=== PATIENT | male | born 2000 | race Caucasian/White ===

== ENCOUNTER 2021-01-09 17:09 | Emergency (ER) | payer MEDICAID ==
[2021-01-09] MEDS ORDERED: Sodium Chloride 0.9% 1000 ML 1,000 ML IV STA (17:29)
--- NOTE | 2021-01-09 17:35 | ERPHSYRPT ---
- History of Present Illness Time Seen by Provider: 01/09/21 17:20 Source: patient Exam Limitations: no limitations Patient Subjective Stated Complaint: PT states "I have had lower abdominal pain for two days and today it got really bad. It was swollen in the area this mo rning." Triage Nursing Assessment: PT presented alert and oriented X 3, skin pwd Pt ambulates with an upright steady gait, able to speak in clear full sentences. PT stated that when he moves it really hurts. Physician History: Patient is a 20-year-old male presents to our ED with complaints of right lower quadrant pain. Patient has been experiencing intermittent right lower quadrant pain for 2 days. Patient states he feels the right lower quadrant is somewhat swollen. Patient states he has had his pain in the past. Patient had a CAT scan. Patient believes he may have had appendicitis but states it was untreated. However patient is not sure. No associated nausea or vomiting. No diarrhea. No rash. No fever. No trauma. Patient denies testicular pain/tenderness. He voices no other complaints at this time. Timing/Duration: yesterday (2 Days) Severity: moderate Modifying Factors: Improves With: movement Associated Symptoms: denies symptoms, No diaphoresis, No cough, No chills, No fever, No headaches, No loss of appetite, No syncope Allergies/Adverse Reactions: No Known Drug Allergies Allergy (Verified 01/09/21 17:22) Home Medications: No Reportable Medications [No Reported Medications] 01/09/21 [History] Hx Tetanus, Diphtheria Vaccination/Date Given: No Hx Influenza Vaccination/Date Given: No Hx Pneumococcal Vaccination/Date Given: No Immunizations Up to Date: Yes Travel Risk - International Travel Have you traveled outside of the country in past 3 weeks: No - Coronavirus Screening Are you exhibiting any of the following symptoms?: No Close contact with a COVID-19 positive Pt in past 14-21 Days: No - Review of Systems Constitutional: No Symptoms, No Fever, No Chills Eyes: No Symptoms Ears, Nose, & Throat: No Symptoms Respiratory: No Symptoms, No Cough, No Dyspnea Cardiac: No Symptoms, No Chest Pain, No Edema, No Syncope Abdominal/Gastrointestinal: No Symptoms, Abdominal Pain, Other (Tenderness to palpation right lower quadrant.), No Nausea, No Vomiting, No Diarrhea Genitourinary Symptoms: No Symptoms, Other (No testicular tenderness or pain. Genitalia exam within normal limits.), No Dysuria Musculoskeletal: No Symptoms, No Back Pain, No Neck Pain Skin: No Symptoms, No Rash Neurological: No Symptoms, No Dizziness, No Focal Weakness, No Sensory Changes Psychological: No Symptoms Endocrine: No Symptoms Hematologic/Lymphatic: No Symptoms Immunological/Allergic: No Symptoms All Other Systems: Reviewed and Negative - Past Medical History Pertinent Past Medical History: No - Past Surgical History Past Surgical History: Yes Other Surgical History: tonsils - Social History Smoking Status: Current every day smoker How long have you smoked: years Exposure to second hand smoke: Yes Drug Use: none Patient Lives Alone: No - Nursing Vital Signs Nursing Vital Signs: Initial Vital Signs Temperature 99.1 F 01/09/21 17:16 Pulse Rate 85 01/09/21 17:16 Respiratory Rate 20 01/09/21 17:16 Blood Pressure 142/80 01/09/21 17:16 O2 Sat by Pulse Oximetry 99 01/09/21 17:16 Pain Scale Pain Intensity 6 - Physical Exam General Appearance: no apparent distress, alert Eye Exam: PERRL/EOMI, eyes nml inspection Ears, Nose, Throat Exam: normal ENT inspection, TMs normal, pharynx normal, moist mucous membranes Neck Exam: normal inspection, non-tender, supple, full range of motion Respiratory Exam: normal breath sounds, lungs clear, No respiratory distress Cardiovascular Exam: regular rate/rhythm, normal heart sounds, normal peripheral pulses Gastrointestinal/Abdomen Exam: soft, normal bowel sounds, No tenderness, No mass Back Exam: normal inspection, normal range of motion, No CVA tenderness, No vertebral tenderness Extremity Exam: normal inspection, normal range of motion, pelvis stable Neurologic Exam: alert, oriented x 3, cooperative, normal mood/affect, nml cerebellar function, nml station & gait, sensation nml, No motor deficits Skin Exam: normal color, warm, dry, No rash Lymphatic Exam: No adenopathy SpO2 Interpretation: normal SpO2: 99 O2 Delivery: Room Air - Course Nursing assessment & vital signs reviewed: Yes - CT Exams Abdomen/Pelvis CT Interpretation: Tele-radiologist Report (Normal appendix. Stomach mildly distended with food and fluid. Gallbladder contracted mild diffuse fecal stasis. Incidental bilateral L5 spondylolysis with 1 to 2 mm spondylolisthesis.) Ordered Tests: Active Orders 24 hr Category Date Time Status IV Insertion STAT Care 01/09/21 17:29 Active NPO (ED) STAT Care 01/09/21 17:29 Active ABDOMEN AND PELVIS W CONTRAST [CT] Stat Exams 01/09/21 17:29 Taken CBC W DIFF Stat Lab 01/09/21 17:53 Completed CMP Stat Lab 01/09/21 17:53 Completed LIPASE Stat Lab 01/09/21 17:53 Completed Manual Differential NC Stat Lab 01/09/21 17:53 Completed UA W/RFX UR CULTURE Stat Lab 01/09/21 18:00 Completed Medication Summary Discontinued Medications Generic Name Dose Route Start Last Admin Trade Name Cecile PRN Reason Stop Dose Admin Sodium Chloride 1,000 mls @ 999 mls/hr 01/09/21 17:29 01/09/21 17:41 Sodium Chloride 0.9% 1000 Ml IV 01/09/21 18:29 999 mls/hr .Q1H1M STA Administration Sodium Chloride Confirm 01/09/21 17:39 Sodium Chloride 0.9% 1000 Ml Administered 01/09/21 17:40 Dose 1,000 mls @ ud .ROUTE .[facility] Lab/Rad Data: Laboratory Result Diagrams 01/09/21 17:53 01/09/21 17:53 Laboratory Results 01/09/21 01/09/21 01/09/21 Range/Units 18:00 17:53 17:53 WBC 9.6 (4.0-10.5) K/mm3 RBC 5.61 H (4.1-5.6) M/mm3 Hgb 16.8 (12.5-18.0) gm/dl Hct 49.5 (42-50) % MCV 88.2 (78-100) fl MCH 29.9 (26-32) pg MCHC 33.9 (32-36) g/dl RDW 12.4 (11.5-14.0) % Plt Count 301 (150-450) K/mm3 MPV 10.9 (7.5-11.0) fl Sodium 137 (137-145) mmol/L Potassium 4.0 (3.5-5.1) mmol/L Chloride 99 (98-107) mmol/L Carbon Dioxide 29 (22-30) mmol/L Anion Gap 13.0 (5-15) MEQ/L BUN 13 (9-20) mg/dL Creatinine 0.86 (0.66-1.25) mg/dL Estimated GFR > 60.0 ML/MIN Glucose 92 (74-106) mg/dL Calcium 9.9 (8.4-10.2) mg/dL Total Bilirubin 0.30 (0.2-1.3) mg/dL AST 35 (17-59) U/L ALT 23 (0-50) U/L Alkaline Phosphatase 78 (38-126) U/L Serum Total Protein 7.8 (6.3-8.2) g/dL Albumin 4.7 (3.5-5.0) g/dL Lipase 84 (23-300) U/L Urine Color YELLOW (YELLOW) Urine Appearance SLIGHTLY CLOUDY (CLEAR) Urine pH 7.0 (5-6) Ur Specific [place] 1.025 (1.005-1.025) Urine Protein NEGATIVE (Negative) Urine Ketones NEGATIVE (NEGATIVE) Urine Blood NEGATIVE (0-5) Price/ul Urine Nitrite NEGATIVE (NEGATIVE) Urine Bilirubin NEGATIVE (NEGATIVE) Urine Urobilinogen NEGATIVE (0-1) mg/dL Ur Leukocyte Esterase NEGATIVE (NEGATIVE) Urine WBC (Auto) NONE (0-5) /HPF Urine RBC (Auto) NONE (0-2) /HPF U Epithel Cells (Auto) NONE (FEW) /HPF Urine Bacteria (Auto) NONE (NEGATIVE) /HPF Urine Culture Reflexed NO (NO) Urine Glucose NEGATIVE (NEGATIVE) mg/dL - Progress Progress: improved Progress Note: Patient reassessed. No active pain at this time. Laboratory work-up essentially within normal limits. CT abdomen pelvis negative for appendicitis. However fecal stasis was observed. This may be the cause of patient's pain. Patient will try [id number] MiraLAX to address the constipation. Bilateral L5 spondylolysis with 1 to 2 mm spondylolisthesis. Patient aware of this finding and will follow up. Patient given a referral to Dr. Sam. Patient states he is ready for discharge. He voices no other complaints concerns at this time. Will discharge home. 01/09/21 19:14 Counseled pt/family regarding: lab results, diagnosis, rad results - Departure Departure Disposition: Home Clinical Impression: Constipation, Spondylolysis, Spondylolisthesis at L5-S1 level Condition: Stable Critical Care Time: No Referrals: DOCTOR,NO FAMILY [Primary Care Provider] - RAMONA SAM [ACTIVE STAFF] - Additional Instructions: Discharge/Care Plan ANT MILLER was seen on 01/09/21 in the Emergency Room. The patient was counseled regarding Diagnosis,Lab results, Imaging studies, need for follow up and when to return to the Emergency Room. Prescriptions given: Discharge Note I have spoken with the patient and/or caregivers. I have explained the patient's condition, diagnosis and treatment plan based on the information available to me at this time. I have answered the patient's and/or caregiver's questions and addressed any concerns. The patient and/or caregivers have as good understanding of the patient's diagnosis, condition and treatment plan as can be expected at this point. The vital signs have been stable. The patient's condition is stable and appropriate for discharge from the emergency department. The patient will pursue further outpatient evaluation with the primary care physician or other designated or consulting physician as outlined in the discharge instructions. The patient and/or caregivers are agreeable to this plan of care and follow-up instructions have been explained in detail. The patient and/or caregivers have received these instruction. The patient/and or caregivers are aware that any significant change in condition or worsening of symptoms should prompt an immediate return to this or the closest emergency department or call 911.
[2021-01-09] MEDS ORDERED: Sodium Chloride 0.9% 1000 ML 1,000 ML ONE (17:39)
[2021-01-09 17:57] LABS: Hematocrit 49.5 % (42-50); Hemoglobin 16.8 gm/dl (12.5-18.0); Mean Cell Volume 88.2 fl (78-100); Mean Corpuscular Hemoglobin 29.9 pg (26-32); Mean Corpuscular Hgb Concent. 33.9 g/dl (32-36); Mean Platelet Volume 10.9 fl (7.5-11.0); Platelet Count 301 K/mm3 (150-450); Red Blood Count 5.61 M/mm3 (4.1-5.6); Red Cell Distribution Width 12.4 % (11.5-14.0); White Blood Count 9.6 K/mm3 (4.0-10.5)
[2021-01-09 18:13] LABS: ALBUMIN 4.7 g/dL (3.5-5.0); ALKALINE PHOSPHATASE 78 U/L (38-126); BLOOD UREA NITROGEN 13 mg/dL (9-20); CHLORIDE 99 mmol/L (98-107); Calcium 9.9 mg/dL (8.4-10.2); Carbon Dioxide 29 mmol/L (22-30); Creatinine 1 0.86 mg/dL (0.66-1.25); EST GLOMERULAR FILTRATION RATE > 60.0 ML/MIN; Glucose 92 mg/dL (74-106); LIPASE 84 U/L (23-300); SGOT/AST 35 U/L (17-59); SGPT/ALT 23 U/L (0-50); SODIUM 137 mmol/L (137-145); Total Protein 7.8 g/dL (6.3-8.2)
[2021-01-09 18:19] VITALS: BP 138/69; PULSE 71
[2021-01-09 18:31] LABS: Appearance SLIGHTLY CLOUDY (CLEAR); Bilirubin NEGATIVE (NEGATIVE); Blood NEGATIVE Ery/ul (0-5); Glucose NEGATIVE (NEGATIVE); Ketones NEGATIVE (NEGATIVE); Leukocyte Esterase NEGATIVE (NEGATIVE); Nitrite NEGATIVE (NEGATIVE); Protein,Urine Dip NEGATIVE (Negative); Specific Gravity 1.025 (1.005-1.025); Urobilinogen NEGATIVE mg/dL (0-1)
[2021-01-09 19:00] VITALS: O2SAT 99
[2021-01-09 20:36] LABS: ATYPICAL LYMPHS 1 %; BAND 2 % (0.0-2.0); Eosinophil 3 % (0.00-3.0); Lymphocytes 20 % (24-44); Monocyte 9 % (0.0-12.0); Neutrophils 65 % (36.-66.); Platelet Estimate NORMAL (NORMAL); Total Cells Counted 100
--- NOTE | 2021-01-10 08:47 | XRAY ---
Indication: Right lower quadrant pain. Multiple contiguous axial images obtained through the abdomen and pelvis using 80 cc Isovue 370 contrast. Comparison: None Lung bases demonstrates mild dependent atelectasis. No infiltrate or effusion. Heart is not enlarged. Stomach is distended with food/fluid. Noncontrasted stomach and bowel loops appear nonobstructed. Normal air-filled appendix. There is mild diffuse scattered colonic fecal debris throughout. No free fluid/air. Gallbladder is contracted. Remaining liver, pancreas, spleen, adrenal glands, kidneys, ureters, bladder, and aorta appear normal in CT appearance and attenuation. No pathologic retroperitoneal lymphadenopathy. Osseous structures intact with small multilevel thoracic Schmorl nodes. Bilateral L5 spondylolysis with 1-2 mm spondylolisthesis. No ventral or inguinal hernias. Impression: 1. Mild diffuse fecal stasis and chronic bony findings. 2. Remaining CT abdomen/pelvis with contrast exam is negative.
== END 2021-01-09 19:15 | disposition home or self-care (01) ==
LOC: ED 17:09
DX: R10.31 Right lower quadrant pain (principal); K59.00 Constipation, unspecified; M43.16 Spondylolisthesis, lumbar region; M47.819 Spondylosis without myelopathy or radiculopathy, site unspecified; F17.200 Nicotine dependence, unspecified, uncomplicated
CPT/HCPCS: 36000; 36415; 74177; 80053; 81001; 83690; 85025; 96360; 99284

== ENCOUNTER 2021-07-06 00:37 | Emergency (ER) | payer OTHER ==
[2021-07-06 01:15] VITALS: O2SAT 100
--- NOTE | 2021-07-06 01:29 | ERPHSYRPT ---
- History of Present Illness Time Seen by Provider: 07/06/21 01:24 Source: patient Exam Limitations: no limitations Patient Subjective Stated Complaint: pt states he hit a wall while arguing with his . now has pain and swelling in his lt hand Triage Nursing Assessment: pt alert and oriented, answers questions approp. respirations nonlabored. skin warm and dry. pt ambulatory with steady gait noted. swelling noted to top of lt hand. pt reporst tenderness. cap refill and radial pulse wnl. Physician History: Patient is a 21-year-old male who during an argument with his took his left hand and smashed the wall and now presents with a complaint of pain and swelling to the dorsum of the left hand. Finger alignment is good neurovascular tendon seem intact. Occurred: just prior to arrival Method of Injury: direct blow Quality: aching, throbbing Severity of Pain-Max: moderate Severity of Pain-Current: moderate Extremities Pain Location: hand: left (Pain swelling) Modifying Factors: Improves With: movement Associated Symptoms: none Allergies/Adverse Reactions: No Known Drug Allergies Allergy (Verified 07/06/21 01:15) Home Medications: No Reportable Medications [No Reported Medications] 01/09/21 [History] Hx Tetanus, Diphtheria Vaccination/Date Given: Yes Hx Influenza Vaccination/Date Given: No Hx Pneumococcal Vaccination/Date Given: No Immunizations Up to Date: Yes Travel Risk - International Travel Have you traveled outside of the country in past 3 weeks: No - Coronavirus Screening Are you exhibiting any of the following symptoms?: No Close contact with a COVID-19 positive Pt in past 14-21 Days: No - Vaccine Status Have you recieved a Covid-19 vaccination: No - Review of Systems Constitutional: No Fever, No Chills Eyes: No Symptoms Ears, Nose, & Throat: No Symptoms Respiratory: No Cough, No Dyspnea Cardiac: No Chest Pain, No Edema, No Syncope Abdominal/Gastrointestinal: No Abdominal Pain, No Nausea, No Vomiting, No Diarrhea Genitourinary Symptoms: No Dysuria Musculoskeletal: Joint Pain, Joint Swelling, No Back Pain, No Neck Pain Skin: No Rash Neurological: No Dizziness, No Focal Weakness, No Sensory Changes Psychological: No Symptoms Endocrine: No Symptoms All Other Systems: Reviewed and Negative - Past Medical History Pertinent Past Medical History: No - Past Surgical History Past Surgical History: Yes Other Surgical History: tonsils - Social History Smoking Status: Current every day smoker How long have you smoked: 10yrs Exposure to second hand smoke: Yes Drug Use: none Patient Lives Alone: No - Nursing Vital Signs Nursing Vital Signs: Initial Vital Signs Temperature 97.8 F 07/06/21 01:04 Pulse Rate 100 H 07/06/21 01:04 Respiratory Rate 16 07/06/21 01:04 Blood Pressure 133/91 07/06/21 01:04 O2 Sat by Pulse Oximetry 100 07/06/21 01:04 Pain Scale Pain Intensity 7 - Physical Exam General Appearance: mild distress, alert Eyes, Ears, Nose, Throat Exam: moist mucous membranes Neck Exam: non-tender, supple Cardiovascular/Respiratory Exam: chest non-tender, normal breath sounds, regular rate/rhythm, no respiratory distress Abdominal Exam: non-tender, No guarding Back Exam: normal inspection, No vertebral tenderness Shoulder Exam: normal inspection, non-tender Elbow/Forearm Exam: normal inspection, non-tender Wrist Exam: normal inspection, non-tender Hand Exam: limited ROM, soft tissue tenderness, stiffness, swelling (Swelling and tenderness to the dorsum of the left hand nearly full range of motion.) Neuro/Tendon Exam: normal sensation, normal motor functions Mental Status Exam: alert, oriented x 3, cooperative Skin Exam: normal color, warm, dry SpO2: 100 - Course Nursing assessment & vital signs reviewed: Yes - Radiology Exams Left Hand X-ray Interpretation: Interpreted by me, Negative (Hip soft tissue swelling) Ordered Tests: Active Orders 24 hr Category Date Time Status HAND (MINIMUM 3 VIEWS) Stat Exams 07/06/21 01:08 Taken - Progress Progress: improved - Departure Departure Disposition: Home Clinical Impression: Contusion of hand, left Condition: Stable Critical Care Time: No Referrals: DONTAE WING FNP [Primary Care Provider] - Instructions: Hand Pain (DC)
[2021-07-06] MEDS ORDERED: NORCO 5/325 MG PO ONE (01:38)
[2021-07-06] MEDS ORDERED: NORCO 5/325 MG ONE (01:58)
[2021-07-06 02:35] VITALS: BP 123/89; PULSE 75
--- NOTE | 2021-07-06 06:46 | XRAY ---
Indication: Swelling following trauma. Comparison: None 3 view left hand demonstrates diffuse soft tissue swelling. No other bony, articular, or soft tissue abnormalities.
== END 2021-07-06 02:10 | disposition home or self-care (01) ==
LOC: ED 00:37
DX: S60.222A Contusion of left hand, initial encounter (principal); W22.01XA Walked into wall, initial encounter; Y93.89 Activity, other specified; Y92.89 Other specified places as the place of occurrence of the external cause; Y99.9 Unspecified external cause status; M79.89 Other specified soft tissue disorders
CPT/HCPCS: 73130; 99283; A9270-GY

== ENCOUNTER 2021-08-08 13:58 | Emergency (ER) | payer OTHER ==
--- NOTE | 2021-08-08 14:29 | XRAY ---
Indication: Pain following injury 4 days ago. Comparison: July 06, 2021. 3 view left hand again demonstrates soft tissue swelling less than before. No new bony, articular, or soft tissue abnormalities.
[2021-08-08] MEDS ORDERED: TORAdol 30 mg Injection IM ONE (14:32)
[2021-08-08] MEDS ORDERED: TORAdol 30 mg Injection ONE (14:34)
--- NOTE | 2021-08-08 14:37 | ERPHSYRPT ---
- History of Present Illness Time Seen by Provider: 08/08/21 14:07 Source: patient Exam Limitations: no limitations Patient Subjective Stated Complaint: pt here for pain to left hand, he states he has injured it twice, once by hitting a wall and second time yesterday getting it smashed while working on tractor Triage Nursing Assessment: pt has swelling to left hand, no bruising Physician History: 21 years old right-handed dominant male presented in the ER with chief complaint of left digit metacarpophalangeal joint/knuckle area swelling and pain off and on for quite some time when he initially pointed against wall but did not seek any medical attention was getting better until yesterday when he put his hand underneath the seat and somebody sat on the seat causing worsening of pain with movements moderate intensity sharp nature in the third digit left hand. Also noticed some increased swelling than baseline. No numbness tingling or weakness of the finger but mild limitation due to pain. Occurred: days ago (1) Method of Injury: other Quality: sharpness Severity of Pain-Max: moderate Severity of Pain-Current: moderate Extremities Pain Location: 3rd finger: left Modifying Factors: Improves With: immobilization, rest. Worsens With: movement Associated Symptoms: none Allergies/Adverse Reactions: No Known Drug Allergies Allergy (Verified 08/08/21 14:10) Hx Tetanus, Diphtheria Vaccination/Date Given: No Hx Influenza Vaccination/Date Given: No Hx Pneumococcal Vaccination/Date Given: No Immunizations Up to Date: Yes Travel Risk - International Travel Have you traveled outside of the country in past 3 weeks: No - Coronavirus Screening Are you exhibiting any of the following symptoms?: No Close contact with a COVID-19 positive Pt in past 14-21 Days: No - Vaccine Status Have you recieved a Covid-19 vaccination: No - Review of Systems Constitutional: No Symptoms Ears, Nose, & Throat: No Symptoms Respiratory: No Symptoms Cardiac: No Symptoms Abdominal/Gastrointestinal: No Symptoms Genitourinary Symptoms: No Symptoms Musculoskeletal: Injury, Joint Swelling Skin: No Symptoms Psychological: No Symptoms Endocrine: No Symptoms Hematologic/Lymphatic: No Symptoms Immunological/Allergic: No Symptoms - Past Medical History Pertinent Past Medical History: No - Past Surgical History Past Surgical History: Yes Other Surgical History: tonsils - Social History Smoking Status: Current every day smoker How long have you smoked: 10yrs Exposure to second hand smoke: Yes Drug Use: marijuana Patient Lives Alone: No - Nursing Vital Signs Nursing Vital Signs: Initial Vital Signs Temperature 98.6 F 08/08/21 14:04 Pulse Rate 94 H 08/08/21 14:04 Respiratory Rate 18 08/08/21 14:04 Blood Pressure 132/62 08/08/21 14:04 O2 Sat by Pulse Oximetry 99 08/08/21 14:04 Pain Scale Pain Intensity 8 - Physical Exam General Appearance: no apparent distress, alert Eyes, Ears, Nose, Throat Exam: normal ENT inspection Neck Exam: full range of motion Cardiovascular/Respiratory Exam: normal breath sounds, regular rate/rhythm Elbow/Forearm Exam: normal inspection, non-tender, no evidence of injury, normal ROM Wrist Exam: normal inspection, non-tender, no evidence of injury, normal ROM Hand Exam: bone tenderness (Third digit left hand metacarpophalangeal joint area swelling with minimal limitation of full extension. Intact distal neurovascular.), soft tissue tenderness, swelling Neuro/Tendon Exam: normal sensation, normal motor functions Mental Status Exam: alert, oriented x 3, cooperative Skin Exam: normal color SpO2 Interpretation: normal SpO2: 99 O2 Delivery: Room Air Ordered Tests: Active Orders 24 hr Category Date Time Status HAND (MINIMUM 3 VIEWS) Stat Exams 08/08/21 14:20 Completed - Progress Progress: improved Progress Note: 08/08/21 14:36 Given Toradol for symptomatic relief. X-rays negative for any acute fracture dislocation. I believe patient has old injury with a flareup from her recent 1 and would put him on NSAIDs and splint, outpatient follow-up. Discussed signs symptoms of worsening needing return to ER which he seems understanding. Counseled pt/family regarding: diagnosis, need for follow-up, rad results - Departure Departure Disposition: Home Clinical Impression: Metacarpophalangeal joint pain of left hand Condition: Stable Critical Care Time: No Referrals: DONTAE WING FNP [Primary Care Provider] - Follow Up with PCP/3 days LORA SHIRLEY MD [NON-STAFF PHY W/O PRIVILEGES] - (Call Wednesday morning for appointment) Instructions: Hand Pain (DC), Boxer's Fracture (DC) Additional Instructions: Take Tylenol/ibuprofen as needed for pain. Avoid exertional activities with left hand. Follow-up with primary care/hand surgery for reevaluation to avoid permanent limitations/disability. Return to ER for worsening pain increasing swelling etc. Prescriptions: Ibuprofen 600 mg PO Q6HPRN PRN 10 Days #20 tablet PRN Reason: Pain
[2021-08-08 14:42] VITALS: BP 138/86; PULSE 84; O2SAT 98
== END 2021-08-08 14:46 | disposition home or self-care (01) ==
LOC: ED 13:58
DX: M25.542 Pain in joints of left hand (principal)
CPT/HCPCS: 73130; 96372; 99284; J1885

== ENCOUNTER 2021-11-04 13:54 | Emergency (ER) | payer OTHER ==
--- NOTE | 2021-11-04 13:56 | ERPHSYRPT ---
- History of Present Illness Time Seen by Provider: 11/04/21 13:56 Source: patient Exam Limitations: no limitations Physician History: This is a 21-year-old white male who has a perineal growth that is increased in size over 6-month period of time. In the last week its increased in size and tenderness significantly. He has not been feeling well. He has never had any like this before. He is on no medications chronically and has no known drug allergies. Occurred: other (Enlarging over 6 months) Quality: sharpness Severity of Pain-Max: mild Severity of Pain-Current: mild (Worsens with palpation) Lower Extremities Pain: other: right (Perineum) Modifying Factors: Improves With: nothing Associated Symptoms: none Allergies/Adverse Reactions: No Known Drug Allergies Allergy (Verified 08/08/21 14:10) Hx Tetanus, Diphtheria Vaccination/Date Given: No Hx Influenza Vaccination/Date Given: No Hx Pneumococcal Vaccination/Date Given: No Travel Risk - International Travel Have you traveled outside of the country in past 3 weeks: No - Coronavirus Screening Are you exhibiting any of the following symptoms?: No Close contact with a COVID-19 positive Pt in past 14-21 Days: No - Vaccine Status Have you recieved a Covid-19 vaccination: No - Review of Systems Constitutional: No Symptoms Eyes: No Symptoms Ears, Nose, & Throat: No Symptoms Respiratory: No Symptoms Cardiac: No Symptoms Abdominal/Gastrointestinal: No Symptoms Genitourinary Symptoms: No Symptoms Musculoskeletal: No Symptoms Skin: Other (Tender area 2 and half centimeter in its longest dimension by 1 cm) Neurological: No Symptoms Psychological: No Symptoms Endocrine: No Symptoms Hematologic/Lymphatic: No Symptoms Immunological/Allergic: No Symptoms All Other Systems: Reviewed and Negative - Past Medical History Pertinent Past Medical History: No - Past Surgical History Past Surgical History: Yes Other Surgical History: tonsils - Social History Smoking Status: Current every day smoker How long have you smoked: 10yrs Exposure to second hand smoke: Yes Drug Use: marijuana Patient Lives Alone: No - Nursing Vital Signs Nursing Vital Signs: Initial Vital Signs Temperature 97.5 F 11/04/21 13:59 Pulse Rate 77 11/04/21 13:59 Respiratory Rate 22 11/04/21 13:59 Blood Pressure 132/81 11/04/21 13:59 O2 Sat by Pulse Oximetry 97 11/04/21 13:59 Pain Scale Pain Intensity 8 - Physical Exam General Appearance: no apparent distress, alert, anxiety Eyes, Ears, Nose, Throat Exam: normal ENT inspection, moist mucous membranes Neck Exam: normal inspection, non-tender, supple, full range of motion Cardiovascular/Respiratory Exam: chest non-tender, no respiratory distress Gastrointestinal/Abdominal Exam: non-tender Back Exam: normal inspection, normal range of motion, No CVA tenderness, No vertebral tenderness Hips Exam: bilateral: non-tender, normal inspection, normal range of motion, no evidence of injury Legs Exam: bilateral leg: non-tender, normal inspection, normal range of motion, no evidence of injury Knees Exam: bilateral knee: non-tender, normal inspection, normal range of motion, no evidence of injury Ankle Exam: bilateral ankle: non-tender, normal inspection, normal range of motion, no evidence of injury Foot Exam: bilateral foot: non-tender, normal inspection, normal range of motion, no evidence of injury Neuro/Tendon Exam: normal sensation, normal motor functions, normal tendon functions, responds to pain, no evidence tendon injury Mental Status Exam: alert, oriented x 3, cooperative Skin Exam: other (Oval-shaped abscess right perineum. 2.5 cm in its longest dimension by 1 cm. Ballotable tender to palpation) SpO2 Interpretation: normal O2 Delivery: Room Air Procedures - Incision and Drainage Time of Procedure: 14:10 Timeout: Performed Site: Right perineum Blade Size: 11 I & D Procedure: betadine prep Results: moderate amount pus Progress: Patient commented that his pain significantly improved upon release of pus - Course Nursing assessment & vital signs reviewed: Yes - Progress Progress: improved, pain not gone completely Counseled pt/family regarding: diagnosis - Departure Departure Disposition: Home Clinical Impression: Perineal abscess, superficial Condition: Stable Critical Care Time: No Referrals: DONTAE WING CDL A DRIVER [Primary Care Provider] - Follow up/PCP as directed Additional Instructions: Keep area clean daily with soap and water. It is preferable to have you undergo daily sitz bath with warm soapy water or with water with Epson salts. Do not use any ointments lotions or creams to the site. Take your antibiotics as prescribed. Add ibuprofen 600 mg orally 3 times a day with food for the next 5 days. Fill your prescriptions and take them as prescribed. Cover your incision site with a feminine pad/peripad after each washing to protect your clothes. Prescriptions: Hydrocodone/APAP 5/325 [[employer] 5/325 mg] 1 each PO Q12H PRN PRN #6 tablet MDD 2 PRN Reason: Pain Smz/Tmp Ds Tablet [Bactrim Ds Tablet] 1 udtab PO BID #14 tablet
[2021-11-04 14:04] VITALS: BP 132/81; PULSE 77; O2SAT 97
== END 2021-11-04 14:38 | disposition home or self-care (01) ==
LOC: ED 13:54
DX: L02.215 Cutaneous abscess of perineum (principal); Z72.0 Tobacco use; Z79.891 Long term (current) use of opiate analgesic
CPT/HCPCS: 10060; 87070; 99283

== ENCOUNTER 2022-02-10 10:15 | Emergency (ER) | payer OTHER ==
--- NOTE | 2022-02-10 10:23 | ERPHSYRPT ---
- History of Present Illness Time Seen by Provider: 02/10/22 10:23 Source: patient Exam Limitations: no limitations Physician History: This is a 22-year-old white male, who 2 days ago, kicked a hitch on his truck with his right foot the dorsal aspect and had pain. Since that time he has experienced worsening pain and it hurts to bear weight. He is here for x-ray. Method of Injury: direct blow Occurred: days ago (2) Quality: aching, throbbing Severity of Pain-Max: moderate Severity of Pain-Current: mild (To moderate) Lower Extremities Pain: foot: right Modifying Factors: Improves With: movement Associated Symptoms: other (Hurts to bear weight) Allergies/Adverse Reactions: No Known Drug Allergies Allergy (Verified 08/08/21 14:10) Hx Tetanus, Diphtheria Vaccination/Date Given: No Hx Influenza Vaccination/Date Given: No Hx Pneumococcal Vaccination/Date Given: No Travel Risk - International Travel Have you traveled outside of the country in past 3 weeks: No - Coronavirus Screening Are you exhibiting any of the following symptoms?: No Close contact with a COVID-19 positive Pt in past 14-21 Days: No - Vaccine Status Have you recieved a Covid-19 vaccination: No - Review of Systems Constitutional: No Symptoms Eyes: No Symptoms Ears, Nose, & Throat: No Symptoms Respiratory: No Symptoms Cardiac: No Symptoms Abdominal/Gastrointestinal: No Symptoms Genitourinary Symptoms: No Symptoms Musculoskeletal: Injury (Right foot, dorsal aspect) Skin: No Symptoms Neurological: No Symptoms Psychological: No Symptoms Endocrine: No Symptoms Hematologic/Lymphatic: No Symptoms Immunological/Allergic: No Symptoms All Other Systems: Reviewed and Negative - Past Medical History Pertinent Past Medical History: No - Past Surgical History Past Surgical History: Yes Other Surgical History: tonsils - Social History Smoking Status: Current every day smoker How long have you smoked: 10yrs Exposure to second hand smoke: Yes Drug Use: marijuana Patient Lives Alone: No - Nursing Vital Signs Nursing Vital Signs: Initial Vital Signs Temperature 98.2 F 02/10/22 10:19 Pulse Rate 72 02/10/22 10:19 Respiratory Rate 20 02/10/22 10:19 Blood Pressure 132/67 02/10/22 10:19 O2 Sat by Pulse Oximetry 98 02/10/22 10:19 Pain Scale Pain Intensity 4 - Physical Exam General Appearance: no apparent distress, alert, anxiety Eyes, Ears, Nose, Throat Exam: normal ENT inspection, moist mucous membranes Neck Exam: normal inspection, non-tender, supple, full range of motion Cardiovascular/Respiratory Exam: chest non-tender, no respiratory distress Gastrointestinal/Abdominal Exam: non-tender Back Exam: normal inspection, normal range of motion, No CVA tenderness, No vertebral tenderness Hips Exam: bilateral: non-tender, normal inspection, normal range of motion, no evidence of injury Legs Exam: bilateral leg: non-tender, normal inspection, normal range of motion, no evidence of injury Knees Exam: bilateral knee: non-tender, normal inspection, normal range of motion, no evidence of injury Ankle Exam: bilateral ankle: non-tender, normal inspection, normal range of motion, no evidence of injury Foot Exam: right foot: bone tenderness (Dorsal aspect), soft tissue tenderness (Dorsal aspect), swelling (Dorsal aspect, mild), left foot: non-tender, normal inspection, normal range of motion, no evidence of injury Neuro/Tendon Exam: normal sensation, normal motor functions, normal tendon functions, responds to pain, no evidence tendon injury Mental Status Exam: alert, oriented x 3, cooperative Skin Exam: normal color, warm, dry SpO2 Interpretation: normal O2 Delivery: Room Air - Course Nursing assessment & vital signs reviewed: Yes Ordered Tests: Active Orders 24 hr Category Date Time Status FOOT (MINIMUM 3 VIEWS) Stat Exams 02/10/22 10:38 Completed - Progress Progress: unchanged, pain not gone completely, re-examined Progress Note: 02/10/22 11:37 X-ray right foot reveals no acute fracture or dislocation. Counseled pt/family regarding: diagnosis, need for follow-up, rad results - Departure Departure Disposition: Home Clinical Impression: Right foot pain Condition: Stable Critical Care Time: No Referrals: DONTAE WING FNP [Primary Care Provider] - Follow up/PCP as directed Additional Instructions: Place right foot and ice bath 3 times a day for the next 48 hours. Add ibuprofen 600 mg orally 3 times a day with food for the next 5 days. Follow-up with [facility] orthopedic clinic for persistent symptoms. Prescriptions: Hydrocodone/APAP 5/325 [[place] 5/325 mg] 1 each PO Q8H PRN PRN #6 tablet MDD 3 PRN Reason: Pain
--- NOTE | 2022-02-10 11:33 | XRAY ---
Indication: Lateral pain following injury 2 days ago. Comparison: None 3 portable nonweightbearing views right foot obtained. No bony, articular, or soft tissue abnormalities.
[2022-02-10 11:47] VITALS: BP 120/65; PULSE 74; O2SAT 94
== END 2022-02-10 11:47 | disposition home or self-care (01) ==
LOC: ED 10:15
DX: M79.671 Pain in right foot (principal); W22.09XA Striking against other stationary object, initial encounter; Z72.0 Tobacco use; Z79.891 Long term (current) use of opiate analgesic
CPT/HCPCS: 73630; 99283

== ENCOUNTER 2022-04-03 15:30 | Emergency (ER) | payer OTHER ==
--- NOTE | 2022-04-03 15:34 | ERPHSYRPT ---
- History of Present Illness Time Seen by Provider: 04/03/22 15:34 Source: patient Exam Limitations: no limitations Physician History: There is a 22-year-old white male with complaints of white patches and sore throat as well as a an associated cough. Is been present for the last 2 days and it seems to be getting worse. He has not had any fever. He has had no known exposures to individuals with viral illnesses but his daughter had similar symptoms that he has had. He has had productive cough with greenish to brown sputum. Timing/Duration: gradual onset, days (2) Severity: mild ENT Location: throat (To moderate) Prearrival Treatment: no prearrival treatment Modifying Factors: Improves With: coughing Associated Symptoms: cough, sore throat Allergies/Adverse Reactions: No Known Drug Allergies Allergy (Verified 04/03/22 15:40) Hx Tetanus, Diphtheria Vaccination/Date Given: No Hx Influenza Vaccination/Date Given: No Hx Pneumococcal Vaccination/Date Given: No Travel Risk - International Travel Have you traveled outside of the country in past 3 weeks: No - Coronavirus Screening Are you exhibiting any of the following symptoms?: Yes Symptoms: Cough: New Onset Close contact with a COVID-19 positive Pt in past 14-21 Days: No - Vaccine Status Have you recieved a Covid-19 vaccination: No - Review of Systems Constitutional: No Symptoms Eyes: No Symptoms Ears, Nose, & Throat: Throat Pain Respiratory: Cough Cardiac: No Symptoms Abdominal/Gastrointestinal: No Symptoms Genitourinary Symptoms: No Symptoms Musculoskeletal: No Symptoms Skin: No Symptoms Neurological: No Symptoms Psychological: No Symptoms Endocrine: No Symptoms Hematologic/Lymphatic: No Symptoms Immunological/Allergic: No Symptoms All Other Systems: Reviewed and Negative - Past Medical History Pertinent Past Medical History: No - Past Surgical History Past Surgical History: Yes Other Surgical History: tonsils - Social History Smoking Status: Current every day smoker How long have you smoked: 10yrs Exposure to second hand smoke: Yes Drug Use: marijuana Patient Lives Alone: No - Nursing Vital Signs Nursing Vital Signs: Initial Vital Signs Temperature 98.1 F 04/03/22 15:37 Pulse Rate 68 04/03/22 15:37 Respiratory Rate 18 04/03/22 15:37 Blood Pressure 139/60 04/03/22 15:37 O2 Sat by Pulse Oximetry 98 04/03/22 15:37 Pain Scale Pain Intensity 5 - Physical Exam General Appearance: no apparent distress, alert, anxiety, thin Eye Exam: bilateral eye: normal inspection, PERRL, EOMI Ear Exam: bilateral ear: auricle normal Nasal Exam: normal inspection Throat Exam: moist mucus membranes, pharynx swelling, pharynx tenderness Neck Exam: normal inspection, non-tender, supple, full range of motion, trachea midline, No lymphadenopathy (L) Cardiovascular/Respiratory Exam: chest non-tender, no respiratory distress Abdominal Exam: non-tender Neurologic Exam: alert, oriented x 3, cooperative, brokerage coordinator II-XII nml as tested, normal mood/affect, nml cerebellar function, nml station & gait, sensation nml Skin Exam: normal color, warm, dry SpO2 Interpretation: normal O2 Delivery: Room Air - Course Nursing assessment & vital signs reviewed: Yes Ordered Tests: Medication Summary Discontinued Medications Generic Name Dose Route Start Last Admin Trade Name Freq PRN Reason Stop Dose Admin Hydrocodone Bitart/Acetaminophen 10 ml 04/03/22 16:43 Hydrocodone/Acetaminophen 5 Ml Udcup PO 04/03/22 16:44 STAT STA Ceftriaxone Sodium 1,000 mg 04/03/22 16:43 Ceftriaxone Sodium 1000 Mg Inj Vial IM 04/03/22 16:44 STAT ONE Methylprednisolone Sodium 0 mg 04/03/22 16:43 Succinate 125 mg/ Sterile IM 04/03/22 16:44 Water 2 ml STAT ONE - Progress Progress: unchanged Counseled pt/family regarding: diagnosis, need for follow-up - Departure Departure Disposition: Home Clinical Impression: Pharyngitis, Bronchitis Condition: Stable Critical Care Time: No Referrals: DONTAE WING FNP [Primary Care Provider] - Follow up/PCP as directed Additional Instructions: Drink plenty of fluids. Take your medication as prescribed. Follow-up with your primary care physician for persistent symptoms Prescriptions: Benzonatate 200 mg PO TID PRN #10 cap PRN Reason: Cough Prednisone 10 mg [Deltasone 10 mg] 10 mg PO TID #12 tablet Azithromycin 250 mg [Zithromax 250 MG TABLET] 250 mg PO ZPACK #6 tablet
[2022-04-03 15:39] VITALS: BP 139/60; PULSE 68; O2SAT 98
[2022-04-03] MEDS ORDERED: solu-MEDROL 125 MG, Sterile H2O 10 ml 2 ML IM ONE ×2 (16:43)
[2022-04-03] MEDS ORDERED: HYDROCODONE-ACETAMIN 2.5-108/5 ML SOLUTION PO STA (16:43)
[2022-04-03] MEDS ORDERED: Rocephin 1000 MG INJ IM ONE (16:43)
[2022-04-03] MEDS ORDERED: Sterile H2O 10 ml IJ ONE (16:52)
[2022-04-03] MEDS ORDERED: XYLOCAINE 1% HCL 20 ML MDV ONE (16:53)
[2022-04-03] MEDS ORDERED: Rocephin 1000 MG INJ ONE (16:53)
[2022-04-03] MEDS ORDERED: solu-MEDROL ONE (16:53)
[2022-04-03] MEDS ORDERED: HYDROCODONE-ACETAMIN 2.5-108/5 ML SOLUTION ONE (16:53)
== END 2022-04-03 18:21 | disposition home or self-care (01) ==
LOC: ED 15:30
DX: J02.9 Acute pharyngitis, unspecified (principal); J40 Bronchitis, not specified as acute or chronic; R05.1 Acute cough; Z72.0 Tobacco use; Z79.52 Long term (current) use of systemic steroids
CPT/HCPCS: 82947; 96372; 99284; J0696; J2930; A9270-GY

== ENCOUNTER 2022-05-25 20:19 | Emergency (ER) | payer OTHER ==
--- NOTE | 2022-05-25 20:21 | ERPHSYRPT ---
- History of Present Illness Time Seen by Provider: 05/25/22 20:20 Source: patient Exam Limitations: no limitations Physician History: There is a 22-year-old white male patient who has had dizziness all day. He does state he has had a left upper molar and infection that has been draining. He denies chest pain. He is not on any medications. He has no seizure disorder but did undergo an EEG on 05/13/2022. I reviewed the report and the report impression was that is a normal exam without any evidence of seizure activity. He has no shortness of breath. He said no fevers. He has no muscle aches or pains. He denies any traumatic injury to his head. Timing/Duration: today Severity: mild (To moderate) Baseline/Normal Cognition: alert oriented x 3 Current Cognition: alert oriented x 3 Associated Symptoms: nausea, No vomiting, No seizures Allergies/Adverse Reactions: No Known Drug Allergies Allergy (Verified 04/03/22 15:40) Hx Tetanus, Diphtheria Vaccination/Date Given: No Hx Influenza Vaccination/Date Given: No Hx Pneumococcal Vaccination/Date Given: No Travel Risk - International Travel Have you traveled outside of the country in past 3 weeks: No - Coronavirus Screening Are you exhibiting any of the following symptoms?: No Close contact with a COVID-19 positive Pt in past 14-21 Days: No - Vaccine Status Have you recieved a Covid-19 vaccination: No - Review of Systems Constitutional: No Symptoms Eyes: No Symptoms Ears, Nose, & Throat: Other (Left upper molar pain) Respiratory: No Symptoms ( and infection) Cardiac: No Symptoms Abdominal/Gastrointestinal: No Symptoms Genitourinary Symptoms: No Symptoms Musculoskeletal: No Symptoms Skin: No Symptoms Neurological: No Symptoms Psychological: No Symptoms Endocrine: No Symptoms Hematologic/Lymphatic: No Symptoms Immunological/Allergic: No Symptoms All Other Systems: Reviewed and Negative - Past Medical History Pertinent Past Medical History: No - Past Surgical History Past Surgical History: Yes Other Surgical History: tonsils - Social History Smoking Status: Current every day smoker How long have you smoked: 10yrs Exposure to second hand smoke: Yes Drug Use: marijuana Patient Lives Alone: No - Nursing Vital Signs Nursing Vital Signs: Initial Vital Signs Temperature 98.7 F 05/25/22 20:27 Pulse Rate 85 05/25/22 20:27 Respiratory Rate 20 05/25/22 20:27 Blood Pressure 129/77 05/25/22 20:27 O2 Sat by Pulse Oximetry 97 05/25/22 20:27 Pain Scale Pain Intensity 5 - [place] Coma Scale Best Eye Response (Che): (4) open spontaneously Best Verbal Response ([place]): (5) oriented Best Motor Response (Che): (6) obeys commands Che Total: 15 - Physical Exam General Appearance: no apparent distress, alert, anxiety Eye Exam: bilateral eye: normal inspection, PERRL, EOMI Ears, Nose, Throat Exam: moist mucous membranes, other (Poor dentition.) Neck Exam: normal inspection, non-tender, supple, full range of motion Respiratory: normal breath sounds, lungs clear, airway intact, No chest tenderness, No respiratory distress Cardiovascular: regular rate/rhythm, normal heart sounds, normal peripheral pulses Gastrointestinal: soft, normal bowel sounds, No tenderness Rectal Exam: not done Back Exam: normal inspection, normal range of motion, No CVA tenderness, No ve rtebral tenderness Extremity Exam: normal inspection, normal range of motion, pelvis stable 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 No comparison EKG available.) Ordered Tests: Active Orders 24 hr Category Date Time Status Clean Catch Urine Specimen STAT Care 05/25/22 20:47 Active EKG-ER Only STAT Care 05/25/22 20:55 Active HEAD WITHOUT CONTRAST [CT] Stat Exams 05/25/22 20:48 Taken CBC W DIFF Stat Lab 05/25/22 21:10 Completed CMP Stat Lab 05/25/22 21:10 Completed ETHYL ALCOHOL Stat Lab 05/25/22 21:10 Completed UA W/RFX CULTURE Stat Lab 05/25/22 20:58 Completed Urine Triage Profile Stat Lab 05/25/22 20:58 Completed Medication Summary Discontinued Medications Generic Name Dose Route Start Last Admin Trade Name Freq PRN Reason Stop Dose Admin Cephalexin HCl 500 mg 05/25/22 21:21 05/25/22 21:25 Cephalexin Mh500 Mg Capsule PO 05/25/22 21:22 500 mg STAT ONE Administration Cephalexin HCl Confirm 05/25/22 21:24 Cephalexin Mh500 Mg Capsule Administered 05/25/22 21:25 Dose 500 mg .ROUTE .STK-MED ONE Ondansetron HCl 4 mg 05/25/22 20:48 05/25/22 20:54 Zofran 4 Mg/Udtablet Orally Disintegrating PO 05/25/22 20:49 4 mg STAT ONE Administration Ondansetron HCl Confirm 05/25/22 20:53 Zofran 4 Mg/Udtablet Orally Disintegrating Administered 05/25/22 20:54 Dose 4 mg .ROUTE .STK-MED ONE Lab/Rad Data: Laboratory Result Diagrams 05/25/22 21:10 05/25/22 21:10 Laboratory Results 05/25/22 05/25/22 05/25/22 Range/Units 21:10 21:10 20:58 WBC 8.9 (4.0-10.5) x10^3/uL RBC 5.07 (4.1-5.6) x10^6/uL Hgb 15.8 (12.5-18.0) g/dL Hct 44.7 (42-50) % MCV 88.2 (78-100) fL MCH 31.2 (26-32) pg MCHC 35.3 (32-36) g/dL RDW 11.7 (11.5-14.0) % Plt Count 257 (150-450) x10^3/uL MPV 11.2 H (7.5-11.0) fL Gran % 62.9 (36.0-66.0) % Immature Gran % (Auto) 0.2 (0.00-0.4) % Nucleat RBC Rel Count 0.0 (0.00-0.1) % Eos # (Auto) 0.20 (0-0.5) x10^3/uL Immature Gran # (Auto) 0.02 (0.00-0.03) x10^3u/L Absolute Lymphs (auto) 2.12 (1.0-4.6) x10^3/uL Absolute Monos (auto) 0.91 (0.0-1.3) x10^3/uL Absolute Nucleated RBC 0.00 (0.00-0.01) x10^3u/L Lymphocytes % 23.8 L (24.0-44.0) % Monocytes % 10.2 (0.0-12.0) % Eosinophils % 2.2 (0.00-5.0) % Basophils % 0.7 (0.0-0.4) % Absolute Granulocytes 5.58 (1.4-6.9) x10^3/uL Basophils # 0.06 (0-0.4) x10^3/uL Sodium 137 (137-145) mmol/L Potassium 4.1 (3.5-5.1) mmol/L Chloride 99 (98-107) mmol/L Carbon Dioxide 30 (22-30) mmol/L Anion Gap 12.3 (5-15) MEQ/L BUN 10 (9-20) mg/dL Creatinine 0.99 (0.66-1.25) mg/dL Estimated GFR > 60.0 ML/MIN Glucose 103 (74-106) mg/dL Calcium 9.7 (8.4-10.2) mg/dL Total Bilirubin 0.50 (0.2-1.3) mg/dL AST 27 (17-59) U/L ALT 19 (0-50) U/L Alkaline Phosphatase 80 (38-126) U/L Serum Total Protein 7.3 (6.3-8.2) g/dL Albumin 4.7 (3.5-5.0) g/dL Urinalys Dipstick Clnc MAIN LAB Urine Color YELLOW (YELLOW) Urine Appearance CLEAR (CLEAR) Urine pH 6.0 (5-6) Ur Specific [place] 1.015 (1.005-1.025) POC Urine Protein Conf TRACE (Negative) Urine Ketones NEGATIVE (NEGATIVE) Urine Nitrite NEGATIVE (NEGATIVE) Urine Bilirubin NEGATIVE (NEGATIVE) Urine Urobilinogen 0.2 (0-1) mg/dL Urine Leukocytes NEGATIVE (NEGATIVE) Urine WBC (Auto) NONE (0-5) /HPF Urine RBC (Auto) NONE (0-2) /HPF U Epithel Cells (Auto) NONE (FEW) /HPF Urine Bacteria (Auto) NONE (NEGATIVE) /HPF Urine RBC NEGATIVE (0-5) Price/ul Urine Mucus (Auto) SLIGHT (NEGATIVE) /HPF Ur Culture Indicated? NO Urine Glucose NEGATIVE (NEGATIVE) mg/dL Urine Opiates Level (NEGATIVE) Ur Methadone (NEGATIVE) Urine Barbiturates (NEGATIVE) Ur Phencyclidine (PCP) (NEGATIVE) Urine Amphetamine (NEGATIVE) U Benzodiazepine Level (NEGATIVE) Urine Cocaine (NEGATIVE) Urine Marijuana (THC) (NEGATIVE) Ethyl Alcohol < 10 (0-10) mg/dL 05/25/22 Range/Units 20:58 WBC (4.0-10.5) x10^3/uL RBC (4.1-5.6) x10^6/uL Hgb (12.5-18.0) g/dL Hct (42-50) % MCV (78-100) fL MCH (26-32) pg MCHC (32-36) g/dL RDW (11.5-14.0) % Plt Count (150-450) x10^3/uL MPV (7.5-11.0) fL Gran % (36.0-66.0) % Immature Gran % (Auto) (0.00-0.4) % Nucleat RBC Rel Count (0.00-0.1) % Eos # (Auto) (0-0.5) x10^3/uL Immature Gran # (Auto) (0.00-0.03) x10^3u/L Absolute Lymphs (auto) (1.0-4.6) x10^3/uL Absolute Monos (auto) (0.0-1.3) x10^3/uL Absolute Nucleated RBC (0.00-0.01) x10^3u/L Lymphocytes % (24.0-44.0) % Monocytes % (0.0-12.0) % Eosinophils % (0.00-5.0) % Basophils % (0.0-0.4) % Absolute Granulocytes (1.4-6.9) x10^3/uL Basophils # (0-0.4) x10^3/uL Sodium (137-145) mmol/L Potassium (3.5-5.1) mmol/L Chloride (98-107) mmol/L Carbon Dioxide (22-30) mmol/L Anion Gap (5-15) MEQ/L BUN (9-20) mg/dL Creatinine (0.66-1.25) mg/dL Estimated GFR ML/MIN Glucose (74-106) mg/dL Calcium (8.4-10.2) mg/dL Total Bilirubin (0.2-1.3) mg/dL AST (17-59) U/L ALT (0-50) U/L Alkaline Phosphatase (38-126) U/L Serum Total Protein (6.3-8.2) g/dL Albumin (3.5-5.0) g/dL Urinalys Dipstick Clnc Urine Color (YELLOW) Urine Appearance (CLEAR) Urine pH (5-6) Ur Specific [place] (1.005-1.025) POC Urine Protein Conf (Negative) Urine Ketones (NEGATIVE) Urine Nitrite (NEGATIVE) Urine Bilirubin (NEGATIVE) Urine Urobilinogen (0-1) mg/dL Urine Leukocytes (NEGATIVE) Urine WBC (Auto) (0-5) /HPF Urine RBC (Auto) (0-2) /HPF U Epithel Cells (Auto) (FEW) /HPF Urine Bacteria (Auto) (NEGATIVE) /HPF Urine RBC (0-5) Price/ul Urine Mucus (Auto) (NEGATIVE) /HPF Ur Culture Indicated? Urine Glucose (NEGATIVE) mg/dL Urine Opiates Level NEGATIVE (NEGATIVE) Ur Methadone NEGATIVE (NEGATIVE) Urine Barbiturates NEGATIVE (NEGATIVE) Ur Phencyclidine (PCP) NEGATIVE (NEGATIVE) Urine Amphetamine NEGATIVE (NEGATIVE) U Benzodiazepine Level NEGATIVE (NEGATIVE) Urine Cocaine NEGATIVE (NEGATIVE) Urine Marijuana (THC) POSITIVE (NEGATIVE) Ethyl Alcohol (0-10) mg/dL - Progress Progress: improved Progress Note: 05/25/22 22:10 CAT scan of the head without contrast shows no acute intracranial abnormalities. Counseled pt/family regarding: lab results, diagnosis, need for follow-up, rad results - Departure Departure Disposition: Home Clinical Impression: Dental infection, Dizziness Condition: Stable Critical Care Time: No Referrals: RAMONA JAMIL [Primary Care Provider] - Follow up/PCP as directed Additional Instructions: Take your medication as prescribed. Follow-up with your primary prescribing pro vider for further evaluation management. Follow-up with dentist for definitive care of your dental infection. Prescriptions: Cephalexin Mh 500 mg [Keflex 500 mg] 500 mg PO TID #21 cap
[2022-05-25] MEDS ORDERED: ZOFRAN ODT 4 MG PO ONE (20:48)
[2022-05-25] MEDS ORDERED: ZOFRAN ODT 4 MG ONE (20:53)
[2022-05-25] MEDS ORDERED: KEFLEX 500 MG PO ONE (21:21)
[2022-05-25 21:24] LABS: Absolute Neutrophil Ct (ANC) 5.58 x10^3/uL (1.4-6.9); Basophil (Absolute #) 0.06 x10^3/uL (0-0.4); Eosinophil % 2.2 % (0.00-5.0); Hematocrit 44.7 % (42-50); Hemoglobin 15.8 g/dL (12.5-18.0); Lymphocyte (Absolute #) 2.12 x10^3/uL (1.0-4.6); Lymphocytes % 23.8 % (24.0-44.0); Mean Cell Volume 88.2 fL (78-100); Mean Corpuscular Hemoglobin 31.2 pg (26-32); Mean Corpuscular Hgb Concent. 35.3 g/dL (32-36); Mean Platelet Volume 11.2 fL (7.5-11.0); Monocyte (Absolute #) 0.91 x10^3/uL (0.0-1.3); Monocytes % 10.2 % (0.0-12.0); Neutrophil % 62.9 % (36.0-66.0); Platelet Count 257 x10^3/uL (150-450); Red Blood Count 5.07 x10^6/uL (4.1-5.6); Red Cell Distribution Width 11.7 % (11.5-14.0); White Blood Count 8.9 x10^3/uL (4.0-10.5)
[2022-05-25] MEDS ORDERED: KEFLEX 500 MG ONE (21:24)
[2022-05-25 21:32] LABS: Appearance CLEAR (CLEAR); Bilirubin NEGATIVE (NEGATIVE); Dipstick done @ ? MAIN LAB; Glucose NEGATIVE (NEGATIVE); Ketones NEGATIVE (NEGATIVE); Nitrite NEGATIVE (NEGATIVE); Protein,Urine Dip TRACE (Negative); RBC NEGATIVE Ery/ul (0-5); Specific Gravity 1.015 (1.005-1.025); Urobilinogen 0.2 mg/dL (0-1)
[2022-05-25 21:33] LABS: Mucus SLIGHT /HPF (NEGATIVE); Urine Cultured Indicated? NO
[2022-05-25 21:38] LABS: ALBUMIN 4.7 g/dL (3.5-5.0); ALKALINE PHOSPHATASE 80 U/L (38-126); ANION GAP 12.3 MEQ/L (5-15); BLOOD UREA NITROGEN 10 mg/dL (9-20); CHLORIDE 99 mmol/L (98-107); Calcium 9.7 mg/dL (8.4-10.2); Carbon Dioxide 30 mmol/L (22-30); Creatinine 1 0.99 mg/dL (0.66-1.25); EST GLOMERULAR FILTRATION RATE > 60.0 ML/MIN; ETHYL ALCOHOL < 10 mg/dL (0-10); Glucose 103 mg/dL (74-106); Potassium 4.1 mmol/L (3.5-5.1); SGOT/AST 27 U/L (17-59); SGPT/ALT 19 U/L (0-50); SODIUM 137 mmol/L (137-145); Total Protein 7.3 g/dL (6.3-8.2)
[2022-05-25 21:49] LABS: Amphetamine,Urine NEGATIVE (NEGATIVE); Barbiturate,Urine NEGATIVE (NEGATIVE); Benzodiazepine,Urine NEGATIVE (NEGATIVE); Cocaine,Urine NEGATIVE (NEGATIVE); Methadone,Urine NEGATIVE (NEGATIVE); Opiate,Urine NEGATIVE (NEGATIVE); PCP,Urine NEGATIVE (NEGATIVE); THC,Urine POSITIVE (NEGATIVE)
[2022-05-25 22:25] VITALS: BP 121/72; PULSE 59; O2SAT 98
--- NOTE | 2022-05-26 08:44 | XRAY ---
Indication: Dizziness, headache, and nausea. Multiple contiguous axial images obtained through the head without contrast. Comparison: None Normal appearing brain parenchyma, ventricles, and bony calvarium. Minimal mucosal thickening left maxillary sinus. Remaining visualized paranasal sinuses and mastoid air cells are clear. Impression: Normal CT head without contrast exam. Minimal left maxillary sinus disease.
== END 2022-05-25 22:20 | disposition home or self-care (01) ==
LOC: ED 20:19
DX: K04.7 Periapical abscess without sinus (principal); R42 Dizziness and giddiness; R11.0 Nausea; Z72.0 Tobacco use; Z28.310 Unvaccinated for COVID-19
CPT/HCPCS: 36415; 70450; 80053; 80307; 81015; 85025; 93005; 99284; G0480; Q0162; A9270-GY

== ENCOUNTER 2023-04-15 11:09 | Emergency (ER) | payer OTHER ==
[2023-04-15] MEDS ORDERED: TORAdol 30 mg Injection IM ONE (11:17)
[2023-04-15 11:28] VITALS: PULSE 63
[2023-04-15] MEDS ORDERED: TORAdol 30 mg Injection ONE (11:33)
[2023-04-15 11:41] VITALS: BP 120/77
[2023-04-15 11:43] VITALS: O2SAT 97
--- NOTE | 2023-04-15 11:43 | ERPHSYRPT ---
- History of Present Illness Time Seen by Provider: 04/15/23 11:46 Exam Limitations: no limitations Patient Subjective Stated Complaint: Pt was working late last night and a watermelon planter landed on his hand causing injury to his left hand and fingers, pt states that the planter weighs approx 8000 pounds, pt waited until today to come to the ER Triage Nursing Assessment: Pt drove self to the ER, hypertensive, rates pain as 8/10, left hand is swollen, unable to move fingers, pulse and cap refill is normal, pt states that his hand will go numb off and on, scrapes on all digits except for the thumb Physician History: Patient 23-year-old male presents to our ED with left hand pain. Patient states a watermelon planter fell onto his hand. Patient states he [place] implanter weighs approximately 8000 pounds. Injury occurred last night. Patient states that hurts to make a fist. Patient wants to make sure he did not fracture any bones. No other injuries reported. Pain described as an ache that is localized. No radiation. Patient voices no other complaints or concerns at this time. Portions of this note were created with voice recognition technology. There may be grammatical, spelling, punctuation or sound alike errors Occurred: yesterday Method of Injury: direct blow Quality: constant Severity of Pain-Max: moderate Severity of Pain-Current: mild Extremities Pain Location: hand: left (Left hand) Modifying Factors: Improves With: movement Associated Symptoms: none Allergies/Adverse Reactions: No Known Drug Allergies Allergy (Verified 04/15/23 11:30) Home Medications: No Reportable Medications [No Reported Medications] 04/15/23 [History] Hx Tetanus, Diphtheria Vaccination/Date Given: No Hx Influenza Vaccination/Date Given: No Hx Pneumococcal Vaccination/Date Given: No Travel Risk - International Travel Have you traveled outside of the country in past 3 weeks: No - Coronavirus Screening Are you exhibiting any of the following symptoms?: No - Vaccine Status Have you recieved a Covid-19 vaccination: No - Review of Systems Constitutional: No Symptoms, No Fever, No Chills Eyes: No Symptoms Ears, Nose, & Throat: No Symptoms Respiratory: No Symptoms, No Cough, No Dyspnea Cardiac: No Symptoms, No Chest Pain, No Edema, No Syncope Abdominal/Gastrointestinal: No Symptoms, No Abdominal Pain, No Nausea, No Vomiting, No Diarrhea Genitourinary Symptoms: No Symptoms, No Dysuria Musculoskeletal: No Symptoms, No Back Pain, No Neck Pain Skin: No Symptoms, No Rash Neurological: No Symptoms, No Dizziness, No Focal Weakness, No Sensory Changes Psychological: No Symptoms Endocrine: No Symptoms Hematologic/Lymphatic: No Symptoms Immunological/Allergic: No Symptoms All Other Systems: Reviewed and Negative - Past Medical History Pertinent Past Medical History: Yes Neurological History: Seizures ENT History: No Pertinent History Cardiac History: No Pertinent History Respiratory History: No Pertinent History Endocrine Medical History: No Pertinent History Musculoskeletal History: No Pertinent History GI Medical History: No Pertinent History History: No Pertinent History Psycho-Social History: Anxiety, Depression Male Reproductive Disorders: No Pertinent History - Past Surgical History Past Surgical History: Yes Neuro Surgical History: No Pertinent History Cardiac: No Pertinent History Respiratory: No Pertinent History Gastrointestinal: No Pertinent History Genitourinary: No Pertinent History Musculoskeletal: No Pertinent History Male Surgical History: No Pertinent History Other Surgical History: tonsils - Social History Smoking Status: Current every day smoker How long have you smoked: 10yrs Exposure to second hand smoke: Yes Drug Use: marijuana Patient Lives Alone: No - Nursing Vital Signs Nursing Vital Signs: Initial Vital Signs Temperature 98.6 F 04/15/23 11:16 Pulse Rate 63 04/15/23 11:16 Blood Pressure 140/77 04/15/23 11:16 O2 Sat by Pulse Oximetry 97 04/15/23 11:16 Pain Scale Pain Intensity 8 - Physical Exam General Appearance: no apparent distress, alert Eyes, Ears, Nose, Throat Exam: normal ENT inspection, moist mucous membranes Neck Exam: normal inspection, full range of motion Cardiovascular/Respiratory Exam: chest non-tender, normal breath sounds, regular rate/rhythm, no respiratory distress Abdominal Exam: non-tender, soft, No guarding Back Exam: normal inspection, normal range of motion, No vertebral tenderness Shoulder Exam: normal inspection, non-tender, no evidence of injury, normal ROM Elbow/Forearm Exam: normal inspection, non-tender, no evidence of injury, normal ROM Wrist Exam: normal inspection, non-tender, no evidence of injury, normal ROM Hand Exam: swelling (Swelling to the dorsal aspect of left hand. A few scattered superficial abrasions. Range of motion limited due to pain. Compartments are soft. Cap refill less than 2 seconds. Radial pulse palpable.) Neuro/Tendon Exam: normal sensation, normal motor functions Mental Status Exam: alert, oriented x 3, cooperative Skin Exam: normal color, warm, dry SpO2 Interpretation: normal SpO2: 97 O2 Delivery: Room Air - Course Nursing assessment & vital signs reviewed: Yes - Radiology Exams Hand X-ray Interpretation: Reviewed by me (Left hand demonstrates mild posterior soft tissue swelling. No other bony articular soft tissue abnormalities.) Ordered Tests: Active Orders 24 hr Category Date Time Status HAND (MINIMUM 3 VIEWS) Stat Exams 04/15/23 11:17 Taken Medication Summary Discontinued Medications Generic Name Dose Route Start Last Admin Trade Name Cecile PRN Reason Stop Dose Admin Ketorolac Tromethamine 30 mg 04/15/23 11:17 04/15/23 11:33 Ketorolac Tromethamine 30 Mg/Ml Inj IM 04/15/23 11:18 30 mg STAT ONE Administration Ketorolac Tromethamine Confirm 04/15/23 11:33 Ketorolac Tromethamine 30 Mg/Ml Inj Administered 04/15/23 11:34 Dose 30 mg .ROUTE .Fontself-MED ONE - Progress Progress: improved Progress Note: 23-year-old male presents to our ED for evaluation of hand pain after a [place] plantar fell onto his left hand. Physical exam reveals swelling of the dorsal aspect of the left hand. Hand neurovascular tact distally. Compartments are soft. Cap refill less than 2 seconds. Pain with movement. Patient received Toradol for pain control. X-ray negative for fracture dislocation. Patient referred to orthopedic clinic for follow-up. Patient voices no other complaints concerns at this time. Portions of this note were created with voice recognition technology. There may be grammatical, spelling, punctuation or sound alike errors Complexity of problem addressed is low acute uncomplicated No critical care time Complex of data reviewed and analyzed is moderate. Dr. Viera ordered and independently reviewed the x-ray. Radiologist x-ray report reviewed as well. Risk of complication and or risk morbidity/mortality of patient management is moderate. Patient received IM Toradol for pain control. No social determinants of health present to impede follow-up. Patient will follow-up in the orthopedic clinic tomorrow as discussed. 04/15/23 11:49 Counseled pt/family regarding: diagnosis, need for follow-up, rad results - Departure Departure Disposition: Home Clinical Impression: Hand contusion Condition: Stable Critical Care Time: No Referrals: RAMONA JAMIL [Primary Care Provider] - Follow up/PCP as directed Additional Instructions: Discharge/Care Plan ANT MILLER was seen on 04/15/23 in the Emergency Room. The patient was counseled regarding Diagnosis,Lab results, Imaging studies, need for follow up and when to return to the Emergency Room. Prescriptions given: Discharge Note I have spoken with the patient and/or caregivers. I have explained the patient's condition, diagnosis and treatment plan based on the information available to me at this time. I have answered the patient's and/or caregiver's questions and addressed any concerns. The patient and/or caregivers have as good understanding of the patient's diagnosis, condition and treatment plan as can be expected at this point. The vital signs have been stable. The patient's condition is stable and appropriate for discharge from the emergency department. The patient will pursue further outpatient evaluation with the primary care physician or other designated or consulting physician as outlined in the discharge instructions. The patient and/or caregivers are agreeable to this plan of care and follow-up instructions have been explained in detail. The patient and/or caregivers have received these instruction. The patient/and or caregivers are aware that any significant change in condition or worsening of symptoms should prompt an immediate return to this or the closest emergency department or call 911. Outpatient Orders: Ortho Referral Time Frame: 1 Day, Facility: [facility]osp, Location: [facility]
--- NOTE | 2023-04-15 15:08 | XRAY ---
Indication: Pain following injury. Comparison: August 08, 2021 3 view left hand demonstrates mild posterior soft tissue swelling. No other bony, articular, or soft tissue abnormalities.
== END 2023-04-15 11:49 | disposition home or self-care (01) ==
LOC: ED 11:09
DX: S60.222A Contusion of left hand, initial encounter (principal); W20.8XXA Other cause of strike by thrown, projected or falling object, initial encounter; Z28.310 Unvaccinated for COVID-19; Z72.0 Tobacco use
CPT/HCPCS: 73130; 96372; 99283; A4570; J1885